=== PATIENT | female | born 1965 | race Two or more races ===

== ENCOUNTER 2022-01-02 21:07 | Emergency (ER) | payer SELFPAY ==
[~2022-01-02] VITALS: Ht 149.9 cm; Wt 64.4 kg
[2022-01-02 23:08] LABS: Basophils # (auto) 0 10 ^3/uL (0-0.2); Basophils % (auto) 0.2 % (0.0-2.0); Eosinophils # (auto) 0.1 10 ^3/uL (0-0.8); Eosinophils % (auto) 0.4 % (0.0-7.0); Hemoglobin 14.8 g/dL (12.2-16.2); Lymphocytes # (auto) 2.1 10 ^3/uL (0.4-5.4); Mean Corpuscular Hemoglobin 29.1 pg (28.0-32.0); Mean Corpuscular Hgb Conc. 33.7 g/dL (32.0-36.0); Mean Corpuscular Volume 86.5 fL (80.0-100.0); Monocytes # (auto) 0.9 10 ^3/uL (0-1.3); Monocytes % (auto) 6.4 % (0.0-12.0); Neutrophils # (auto) 10.8 10 ^3/uL (1.6-8.6); Nucleated Red Blood Cells % 0.1 %; Red Blood Cells 5.09 10^6/uL (4.0-5.20); Red Cell Distribution Width 13.5 % (11.8-14.3); White Blood Cell 13.9 10^3/uL (4.4-10.8)
[2022-01-02 23:29] LABS: Potassium 3.8 mmol/L (3.5-5.1)
[2022-01-02 23:34] LABS: Albumin 4.4 g/dL (3.4-5.0); BUN/Creatinine Ratio 8.7; Calcium 9.7 mg/dL (8.5-10.1); Magnesium 2.3 mg/dL (1.6-2.6)
[2022-01-02 23:36] LABS: Bilirubin, Total 0.5 mg/dL (0.2-1.0); Total Protein 8.9 g/dL (6.4-8.2)
[2022-01-03] MEDS ORDERED: ALUM & MAG HYDROX-SIMETH LIQ(MAALOX) 30 ML PO ONE
[2022-01-03] MEDS ORDERED: ONDANSETRON HCL 4 MG/2 ML VIAL IV ONE
[2022-01-03] MEDS ORDERED: FAMOTIDINE (10MG/ML) 2ML VL IV ONE
[2022-01-03] MEDS ORDERED: LIDOCAINE VISCOUS 2% 15ML UD PO ONE
[2022-01-03 02:15] VITALS: BP 115/70
[2022-01-03] MEDS ORDERED: ONDA-144 PO (03:14)
== END 2022-01-03 03:58 | disposition home or self-care (01) ==
LOC: ER 21:07
DX: K52.9 Noninfective gastroenteritis and colitis, unspecified (principal); I10 Essential (primary) hypertension
CPT/HCPCS: 36415; 74176; 80053; 83690; 83735; 84484; 85025; 93005; 96374; 96375; 99285; J2405; J3490